=== PATIENT | male | born 1985 | race Two or more races ===

== ENCOUNTER 2016-12-13 21:00 | Emergency (ER) | payer MEDICAID ==
[~2016-12-13] VITALS: Ht 177.8 cm; Wt 86.2 kg
--- NOTE | 2016-12-13 21:03 | NUR ---
PT WALKED INTO ER C/O WORSENING LOWER BACK PAIN 11/26, PT IS ALERT, ORIENTED X 4, NO RESP DISTRESS... MD AT BEDSIDE...
[2016-12-13] MEDS ORDERED: KETOROLAC TROMETHAMINE 15 MG INJ IV ONE (21:30)
[2016-12-13 21:43] LABS: BASOPHILS % (AUTO) 0.6 % (0.0-2.0); EOSINOPHILS # (AUTO) 0.3 K/uL (0.0-0.7); EOSINOPHILS % (AUTO) 4.1 % (0.0-7.0); HEMATOCRIT 46.5 % (40-50); LYMPHOCYTES # (AUTO) 2.2 K/UL (0.8-4.8); LYMPHOCYTES % (AUTO) 35.4 % (20.5-51.5); MEAN CORPUSCULAR HEMOGLOBIN 28.8 UUG (27.0-31.0); MEAN CORPUSCULAR HGB CONC 34 g/dL (32.0-37.0); MEAN CORPUSCULAR VOLUME 83.9 FL (82.0-92.0); MONOCYTES # (AUTO) 0.3 K/UL (0.1-1.30); MONOCYTES % (AUTO) 5.7 % (0.0-11.0); NEUTROPHILS # (AUTO) 3.3 K/UL (1.8-8.9); NEUTROPHILS % (AUTO) 54.2 % (38.5-71.5); PLATELET COUNT (AUTO) 172 K/UL (150-450); RED BLOOD CELL COUNT(AUTO) 5.55 MIL/UL (4.7-6.1); WHITE BLOOD COUNT (AUTO) 6.1 K/UL (4.0-11.2)
[2016-12-13 21:52] LABS: CREATININE 1.1 mg/dL (0.6-1.3); POTASSIUM 3.8 mmol/L (3.5-5.1)
[2016-12-13 21:57] LABS: BILIRUBIN,DIRECT 0.1 mg/dL (0.0-0.2); BILIRUBIN,TOTAL 0.4 mg/dL (0.2-1.0); TOTAL PROTEIN, SERUM 7.8 g/dL (6.4-8.2)
[2016-12-13] MEDS ORDERED: KETOROLAC TROMETHAMINE 30 MG INJ ONE (22:02)
[2016-12-13] MEDS ORDERED: HYDROMORPHONE 1 MG/1 ML DISP.SYRIN ONE (22:11)
--- NOTE | 2016-12-13 23:03 | NUR ---
Patient discharged to home in stable conditon. Written and verbal after care instructions given. Patient verbalizes understanding of instructions. Pt walked out of ER unassisted with belongings at side...
[2016-12-13 23:04] VITALS: BP 123/79
== END 2016-12-13 23:08 | disposition home or self-care (01) ==
LOC: ER 21:00
DX: M54.6 Pain in thoracic spine (principal); M41.9 Scoliosis, unspecified; J45.909 Unspecified asthma, uncomplicated; F12.10 Cannabis abuse, uncomplicated
CPT/HCPCS: 36415; 71010; 72072; 72100; 80048; 80076; 83690; 85025; 85379; 85730; 93005; 96374; 99285; A4663; J1170; J1885

== ENCOUNTER → 2016-12-13 | Emergency (ER) | payer SELFPAY ==
--- NOTE | 2016-12-13 20:30 | NUR ---
PATIENT LEFT WITHOUT BEING TRIAGE OR SEEN BY ERMD
== END | disposition home or self-care (01) ==
LOC: ER 20:18
DX: M54.9 Dorsalgia, unspecified (principal); Z53.21 Procedure and treatment not carried out due to patient leaving prior to being seen by health care provider